=== PATIENT | female | born 1975 | race African-American/Black ===

== ENCOUNTER 2024-10-20 05:52 | Emergency (ER) | payer SELFPAY ==
[~2024-10-20] VITALS: Ht 167.6 cm; Wt 90.0 kg
[2024-10-20 05:53] VITALS: RESP 24
[2024-10-20 05:56] VITALS: O2SAT 100
[2024-10-20 06:21] LABS: BASOPHILS % 0.4 % (0.0-2.0); EOSINOPHILS % 4.4 % (0.0-5.0); HEMATOCRIT. 45.7 % (36.0-48.0); HEMOGLOBIN. 15.2 g/dL (12.0-16.0); LYMPHOCYTES % 46.5 % (20.0-50.0); MEAN PLATELET VOLUME 7.6 fl (7.4-10.4); MONOCYTES % 6.6 % (2.0-8.0); NEUTROPHILS % 42.1 % (40.0-76.0); PLATELET 371 x1000/uL (130-400); RED BLOOD CELL COUNT 5.15 mill/uL (4.2-5.4); RED CELL DISTRIBUTION WIDTH 13.7 % (11.6-14.6)
[2024-10-20 06:33] LABS: BG BASE EXCESS 1.3 mmol/L (-2.0-3.0); BG CARBOXYHEMOGLOBIN 0.5 % (0.5-1.5); BG DEOXYHEMOGLOBIN 0.3 % (0.0-5.0); BG FRACTION INSPIRED OXYGEN 100; BG HCO3 ACT 26.1 mmol/L (21.0-28.0); BG METHEMOGLOBIN 0.1 % (0.5-1.5); BG OXYGEN SATURATION 99.7 % (94.0-98.0); BG OXYHEMOGLOBIN 99.1 % (94.0-98.0); BG PCO2 41.9 mmHg (32.0-45.0); BG PH 7.412 (7.350-7.450); BG PO2 578.5 mmHg (83.0-108.0); BG SAMPLE SITE RIGHT RADIAL; BG TOTAL HEMOGLOBIN 15.4 g/dL (12.0-16.0); BG VENT MODE MASK - BIPAP; BG VENT RATE 16.0 set
[2024-10-20 06:33] LABS: CREATININE 0.9 mg/dL (0.6-1.0); UREA NITROGEN BLOOD 14 mg/dL (9-23)
[2024-10-20 06:34] LABS: TROPONIN I HIGH SENSITIVITY < 4 ng/L (3.0-34)
[2024-10-20 06:48] VITALS: RESP 20
[2024-10-20] MEDS ORDERED: ACETAMINOPHEN 325MG TABLET PO PRN ×2 (07:30)
[2024-10-20] MEDS ORDERED: ONDANSETRON HCL 4MG/2ML INJ IV PRN (07:30)
[2024-10-20] MEDS ORDERED: IPRATROPIUM/ALBUTEROL 0.5-3(2.5)MG/3ML NEB HHN PRN (07:30)
[2024-10-20] MEDS ORDERED: CLONIDINE 0.1MG TABLET PO PRN (07:30)
[2024-10-20] MEDS ORDERED: GUAIFENESIN 200MG/10ML SUGAR FREE UDC PO PRN (07:30)
[2024-10-20 07:31] VITALS: BP 138/83; PULSE 74; RESP 19; TEMP 36.8; O2SAT 98
[2024-10-20 08:02] LABS: ETHANOL BLOOD < 10 mg/dL (<10)
[2024-10-20 08:03] LABS: ASPARTATE AMINOTRANSFERASE 35 IU/L (<34); BILIRUBIN DIRECT 0.1 mg/dL (<=3.0); BILIRUBIN TOTAL 0.6 mg/dL (0.1-1.0); PHOSPHORUS 2.1 mg/dL (2.5-4.9); PROTEIN TOTAL 6.9 g/dL (6.0-8.3)
[2024-10-20 08:07] LABS: T4 FREE 1.25 ng/dL (0.89-1.76)
[2024-10-20] MEDS ORDERED: PANTOPRAZOLE SODIUM 40 MG/VIAL IV SCH (09:00)
== END 2024-10-20 07:45 | disposition left against medical advice (07) ==
LOC: ER 05:52 → CANBEDREQ 07:41 → ER 07:45
DX: E08.9 Diabetes mellitus due to underlying condition without complications (principal); J45.901 Unspecified asthma with (acute) exacerbation; F17.200 Nicotine dependence, unspecified, uncomplicated; I10 Essential (primary) hypertension; Z79.899 Other long term (current) drug therapy
CPT/HCPCS: 80076; 80048; 80320; 83036; 83880; 84439; 83735; 84100; 84443; 85025; 84484; 36415; 84145; 71045; 82805; 82375; 94660; 93005; 99291; 36600; Z7610; G0480